=== PATIENT | female | born 1990 | race Caucasian/White ===

== ENCOUNTER 2018-01-19 01:43 | Emergency (ER) | payer OTHER ==
[~2018-01-19] VITALS: Ht 165.1 cm; Wt 52.6 kg
--- NOTE | 2018-01-19 01:48 | NUR ---
PT AMBULATORY TO ER BED 6. BIBFRIEND FROM HOME C/O +SI/-HI. PT STATES "I TOOK 6MG OF XANAX TO TRY AND HURT MYSELF"X 20MIN [employer] AP[employer]ENTICE. + FEELING OF DEPRESSION. PT PLACED ON CODING ADVISOR. VSS/RESP EVEN UNLABORED/NAD NOTED/SKIN WARM AND DRY/AFEBRILE/DENIES N-V-D/AOX4. AWAITNG MD [place].
--- NOTE | 2018-01-19 01:50 | NUR ---
SITTER AT BEDSIDE.
--- NOTE | 2018-01-19 01:55 | NUR ---
URINE SPECIMEN OBTAINED AND SENT TO THE LAB.
[2018-01-19] MEDS ORDERED: CHARCOAL/SORBITOL SOLUTION 25 G/120 ML TUBE ONE (02:02)
[2018-01-19] MEDS ORDERED: ONDANSETRON 4 MG TAB.RAPDIS ONE (02:09)
--- NOTE | 2018-01-19 02:10 | NUR ---
AT [facility] BEDSIDE SPEAKING WITH THE PATIENT.
--- NOTE | 2018-01-19 02:15 | NUR ---
LABT AT THE BEDSIDE FOR DRAW.
[2018-01-19 02:30] LABS: BASOPHILS # (AUTO) 0.1 /CMM (0.0-0.2); BASOPHILS % (AUTO) 0.7 % (0.0-2.0); EOSINOPHILS % (AUTO) 3.1 % (0.0-6.0); HEMATOCRIT 45 % (33-45); HEMOGLOBIN 14.5 g/dL (11.5-14.8); LYMPHOCYTES # (AUTO) 1.9 /CMM (0.8-4.8); LYMPHOCYTES % (AUTO) 21.8 % (20.0-44.0); MEAN CORPUSCULAR HGB CONC 32 g/dl (31.0-36.0); MEAN CORPUSCULAR VOLUME 92 fL (82-100); MONOCYTES # (AUTO) 0.7 /CMM (0.1-1.30); MONOCYTES % (AUTO) 8.2 % (2.0-12.0); NEUTROPHILS # (AUTO) 5.9 /CMM (1.8-8.9); NEUTROPHILS % (AUTO) 66.2 % (43.0-81.0); PLATELET COUNT (AUTO) 322 /CMM (150-450); RDW COEFFICIENT OF VARIATION 12.9 (11.5-15.0); RED BLOOD CELL COUNT(AUTO) 4.93 MIL/uL (4.0-5.2); WHITE BLOOD COUNT (AUTO) 8.9 K/uL (4.3-11.0)
[2018-01-19] MEDS ORDERED: ONDANSETRON 4 MG TAB.RAPDIS SL ONE (02:30)
[2018-01-19] MEDS ORDERED: ACTIVATED CHARCOAL 25 GM/120 ML TUBE PO ONE (02:30)
[2018-01-19 02:35] LABS: CARBON DIOXIDE 30 mmol/L (21-32); CHLORIDE 102 mmol/L (98-107); CREATININE 1.1 mg/dL (0.6-1.3); GLUCOSE 102 mg/dL (74-106); POTASSIUM 3.4 mmol/L (3.5-5.1); SODIUM SERUM 142 mmol/L (136-145); UREA NITROGEN, BLOOD 11 mg/dL (7-18)
--- NOTE | 2018-01-19 02:40 | NUR ---
SAMREEN FROM CRISIS MANAGEMENT AT BEDSIDE FOR PSYC EVAL.
[2018-01-19 02:44] LABS: ALANINE AMINOTRANSFERASE 14 U/L (12-78); ALBUMIN 4.4 g/dL (3.4-5.0); ALCOHOL, BLOOD < 3 mg/dL (0-0); ALKALINE PHOSPHATASE 38 U/L (46-116); ASPARTATE AMINOTRANSFERASE 13 U/L (15-37); BILIRUBIN,DIRECT 0.1 mg/dL (0.0-0.2); BILIRUBIN,TOTAL 0.3 mg/dL (0.2-1.0); TOTAL PROTEIN, SERUM 7.3 g/dL (6.4-8.2)
[2018-01-19 02:45] LABS: ACETAMINOPHEN 0 ug/ml (10-30); SALICYLATE 1.1 mg/dL (2.8-20.0)
--- NOTE | 2018-01-19 03:18 | NUR ---
Patient discharged in the care of her boyfriend per MD orders to home in stable condition. Written and verbal after care instructions given, patient instructed not to drive. Patient verbalizes understanding of instruction. Patient is awake and alert to self, day, and place. Patient ambulatory with a steady gait.
[2018-01-19 03:20] VITALS: BP 108/64
== END 2018-01-19 03:20 | disposition home or self-care (01) ==
LOC: ER 01:45
DX: T42.4X2A Poisoning by benzodiazepines, intentional self-harm, initial encounter (principal); F14.10 Cocaine abuse, uncomplicated; F32.9 Major depressive disorder, single episode, unspecified; Y92.89 Other specified places as the place of occurrence of the external cause
CPT/HCPCS: 36415; 80048; 80076; 80305; 80329; 84703; 85025; 99284; A4606; G0480 ×2; Q0162; Z7610